=== PATIENT | male | born 1980 | race Caucasian/White ===

== ENCOUNTER → 2017-10-23 | Outpatient (CLI) | payer BC ==
--- NOTE | 2017-10-23 14:04 | DIAGNOSTIC IMAGING REPORT ---
RIGHT INGUINAL ULTRASOUND CLINICAL HISTORY: INGUINAL HERNIA right ankle pain COMPARISON STUDY: No previous studies for comparison. FINDINGS: There is a very small fat-containing reducible right inguinal hernia. IMPRESSION: Very small fat-containing reducible right inguinal hernia Electronically signed by: Maikol Lovett M.D. 10/23/2017 2:03 PM Dictated Date/Time: 10/23/2017 2:02 PM
== END | disposition home or self-care (01) ==
LOC: C.ULTRBC 13:44
PROVIDERS: ATTEND Family Medicine
DX: K40.90 Unilateral inguinal hernia, without obstruction or gangrene, not specified as recurrent (principal)